=== PATIENT | female | born 1990 | race Two or more races ===

== ENCOUNTER 2020-04-14 14:21 | Emergency (ER) | payer MEDICAID ==
[~2020-04-14] VITALS: Ht 154.9 cm; Wt 76.2 kg
[2020-04-14 14:25] VITALS: BP 105/64
[2020-04-14] MEDS ORDERED: Omnipaque-300 100ml vial INJ PRN (14:45)
[2020-04-14] MEDS ORDERED: Morphine Sulfate 4mg/ml Inj (IV USE ONLY) IVP ONE (14:45)
[2020-04-14 15:11] LABS: APPEARANCE,URINE SLIGHTLY CLOUDY; BILIRUBIN, URINE NEGATIVE (NEGATIVE); COLOR,URINE PALE YELLOW; GLUCOSE, URINE (UA) NEGATIVE (NEGATIVE); KETONES,URINE NEGATIVE (NEGATIVE); LEUKOCYTE ESTERASE ,URINE 1+ (NEGATIVE); NITRITE,URINE NEGATIVE (NEGATIVE); PH,URINE 8 (4.5-8.0); PROTEIN,URINE 1+ (NEGATIVE); UROBILINOGEN,URINE NORMAL MG/DL (0.0-1.0)
[2020-04-14 15:12] LABS: BASOPHILS % (AUTO) 0.9 % (0.0-2.0); EOSINOPHILS % (AUTO) 6.3 % (0.0-3.0); HEMATOCRIT 44.8 % (37.0-47.0); HEMOGLOBIN 14.9 G/DL (12.0-16.0); LYMPHOCYTES % (AUTO) 35.1 % (20.0-45.0); MEAN CORPUSCULAR VOLUME 95 FL (80-99); MONOCYTES % (AUTO) 7.5 % (1.0-10.0); NEUTROPHILS % (AUTO) 50.2 % (45.0-75.0); PLATELET COUNT 164 K/UL (150-450); RED CELL DISTRIBUTION WIDTH 12.6 % (11.6-14.8); WHITE BLOOD COUNT 6.5 K/UL (4.8-10.8)
--- NOTE | 2020-04-14 15:17 | Diagnostic Imaging Report ---
EXAM: US Pelvis Transabdominal and Transvaginal, Complete CLINICAL HISTORY: ABD PAIN TECHNIQUE: Real-time complete transabdominal and transvaginal pelvic ultrasound with image documentation. Transvaginal imaging was used for better evaluation of the endometrium and adnexa. COMPARISON: No relevant prior studies available. FINDINGS: Uterus/cervix: Uterus measures 6.6 x 2.9 x 3.5 cm. Endometrium is thin. Right ovary: Right ovary measures 2.2 x 1.4 x 1.9 cm. No complex lesion or torsion. Left ovary: Left ovary is not visualized. Bladder: Unremarkable as visualized. Wall is normal thickness for degree of distention. IMPRESSION: Right ovary is unremarkable. Left ovary not visualized..
[2020-04-14 15:23] LABS: ANION GAP 9 mmol/L (5-15); BLOOD UREA NITROGEN 15 mg/dL (7-18); CARBON DIOXIDE 27 MMOL/L (21-32); CHLORIDE 109 MMOL/L (98-107); CREATININE 0.7 MG/DL (0.55-1.30); POTASSIUM 3.9 MMOL/L (3.5-5.1); SODIUM 145 MMOL/L (136-145)
[2020-04-14 15:28] LABS: ALANINE AMINOTRANSFERASE 25 U/L (12-78); ALBUMIN 3.9 G/DL (3.4-5.0); ALBUMIN/GLOBULIN RATIO 0.9 (1.0-2.7); ALKALINE PHOSPHATASE 66 U/L (46-116); ASPARTATE AMINO TRANSFERASE 16 U/L (15-37); BILIRUBIN,TOTAL 0.3 MG/DL (0.2-1.0)
--- NOTE | 2020-04-14 16:21 | Diagnostic Imaging Report ---
EXAM: CT Abdomen and Pelvis With Intravenous Contrast CLINICAL HISTORY: ABD PAIN TECHNIQUE: Axial computed tomography images of the abdomen and pelvis with intravenous contrast. CTDI is 7 mGy and DLP is 409.9 mGy-cm. One or more of the following dose reduction techniques were used: automated exposure control, adjustment of the mA and/or kV according to patient size, use of iterative reconstruction technique. COMPARISON: No relevant prior studies available. FINDINGS: Lung bases: Mild consolidative atelectasis in the lung bases. ABDOMEN: Liver: Unremarkable. Gallbladder and bile ducts: No calcified stones. No ductal dilation. Pancreas: Unremarkable. Spleen: Unremarkable. Adrenals: Unremarkable. Kidneys and ureters: Unremarkable. No hydronephrosis. Stomach and bowel: No toby mural thickening. Nonobstructive bowel gas pattern. PELVIS: Appendix: No findings to suggest acute appendicitis. Bladder: Unremarkable. Reproductive: Unremarkable. ABDOMEN and PELVIS: Intraperitoneal space: Unremarkable. Bones/joints: No acute fracture. Soft tissues: Unremarkable. Vasculature: Unremarkable. No abdominal aortic aneurysm. Lymph nodes: No enlarged lymph nodes. IMPRESSION: No acute findings in the abdomen or pelvis.
[2020-04-14] MEDS ORDERED: COLACE100 MG ORAL (16:33)
[2020-04-14 16:52] VITALS: BP 112/72
--- NOTE | 2020-04-14 19:21 | Emergency Room Report ---
History of Present Illness General Chief Complaint: Abdominal Pain Source: Patient Present Illness HPI 29-year-old female presents for evaluation. Complaining of abdominal pain for the last 2 months. Pain is middle abdomen radiating to the right, 7 out of 10. Notes episodes of nausea and vomiting. States she has been seen by the PMD was referred for an MRI but has not been done yet. No other aggravating relieving factors. 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 Patient History Past Medical History: none Past Surgical History: none Pertinent Family History: none Social History: Denies: smoking, alcohol use, drug use Last Menstrual Period: on her period Now: No Immunizations: UTD Reviewed Nursing Documentation: PMH: Agreed; PSxH: Agreed Nursing Documentation-PMH Past Medical History: No Stated History Review of Systems All Other Systems: negative except mentioned in HPI Physical Exam Vital Signs Date Time Temp Pulse Resp B/P (MAP) Pulse Ox O2 Delivery O2 Flow Rate FiO2 04/14/20 14:25 87 18 Room Air 04/14/20 14:25 98.2 105/64 94 Sp02 EP Interpretation: reviewed, normal General Appearance: no apparent distress, alert, GCS 15, non-toxic Head: normocephalic, atraumatic Eyes: bilateral eye normal inspection, bilateral eye PERRL ENT: hearing grossly normal, normal pharynx, no angioedema, normal voice Neck: full range of motion, supple/symm/no masses Respiratory: chest non-tender, lungs clear, normal breath sounds, speaking full sentences Cardiovascular #1: regular rate, rhythm, no edema Cardiovascular #2: 2+ carotid (R), 2+ carotid (L), 2+ radial (R), 2+ radial (L), 2+ dorsalis pedis (R), 2+ dorsalis pedis (L) Gastrointestinal: normal bowel sounds, soft, non-distended, no guarding, no rebound, tenderness Rectal: deferred Genitourinary: normal inspection, no CVA tenderness Musculoskeletal: back normal, normal range of motion, gait/station normal, non- tender Neurologic: alert, motor strength/tone normal, oriented x3, sensory intact, responsive, speech normal Psychiatric: judgement/insight normal, memory normal, mood/affect normal, no suicidal/homicidal ideation Reflexes: 3+ bicep (R), 3+ bicep (L), 3+ tricep (R), 3+ tricep (L), 3+ knee (R), 3+ knee (L) Lymphatic: no adenopathy Medical Decision Making Diagnostic Impression: Primary Impression: Abdominal pain Qualified Codes: R10.31 - Right lower quadrant pain ER Course Hospital Course 29-year-old F presents to ED with lower abdominal pain Differential diagnosis includes-appendicitis, cholecystitis, small bowel obstruction, gastritis, Clinical course Patient placed on stretcher. After initial history and physical I ordered labs, IV fluids, pain medications and US and CT scan Labs - no leukocytosis, electroytes ok, LFTs normal, UA unremarkable CT scan shows no acute pathology Ultrasound shows no ovarian pathology On CT there appears to be significant fecal impaction. I discussed this with the patient explained this could be a very realistic cause of her pain. Will discharge home on stool softeners. I provided copies of her CT and ultrasound report. Safe for discharge and close outpatient follow-up. States she will follow-up with her PMD Upon reassessment, patient states pain has improved. Given improvement in symptoms and lack of acute findings, I believe patient can be safely discharged to home. Patient agrees with plan I feel this is a highly complex case requiring extensive working including EKG/Rhythm strip, Xray/CT/US, Blood/urine lab work, repeat exams while in ED, and administration of strong opiates/narcotics for pain control, admission to hospital or close patient follow up. Diagnosis - abdominal pain Stable and discharged to home. Followup with PMD. Return to ED if symptoms recur or worsen Laboratory Tests Test 04/14/20 14:40 White Blood Count 6.5 K/UL (4.8-10.8) Red Blood Count 4.70 M/UL (4.20-5.40) Hemoglobin 14.9 G/DL (12.0-16.0) Hematocrit 44.8 % (37.0-47.0) Mean Corpuscular Volume 95 FL (80-99) Mean Corpuscular Hemoglobin 31.8 PG (27.0-31.0) H Mean Corpuscular Hemoglobin Concent 33.4 G/DL (32.0-36.0) Red Cell Distribution Width 12.6 % (11.6-14.8) Platelet Count 164 K/UL (150-450) Mean Platelet Volume 8.2 FL (6.5-10.1) Neutrophils (%) (Auto) 50.2 % (45.0-75.0) Lymphocytes (%) (Auto) 35.1 % (20.0-45.0) Monocytes (%) (Auto) 7.5 % (1.0-10.0) Eosinophils (%) (Auto) 6.3 % (0.0-3.0) H Basophils (%) (Auto) 0.9 % (0.0-2.0) Urine Color Pale yellow Urine Appearance Slightly cloudy Urine pH 8 (4.5-8.0) Urine Specific [place] 1.010 (1.005-1.035) Urine Protein 1+ (NEGATIVE) H Urine Glucose (UA) Negative (NEGATIVE) Urine Ketones Negative (NEGATIVE) Urine Blood 5+ (NEGATIVE) H Urine Nitrite Negative (NEGATIVE) Urine Bilirubin Negative (NEGATIVE) Urine Urobilinogen Normal MG/DL (0.0-1.0) Urine Leukocyte Esterase 1+ (NEGATIVE) H Urine RBC Tntc /HPF (0 - 2) H Urine WBC 0-2 /HPF (0 - 2) Urine Squamous Epithelial Cells Few /LPF (NONE/OCC) Urine Bacteria Occasional /HPF (NONE) Urine HCG, Qualitative Negative (NEGATIVE) Sodium Level 145 MMOL/L (136-145) Potassium Level 3.9 MMOL/L (3.5-5.1) Chloride Level 109 MMOL/L (98-107) H Carbon Dioxide Level 27 MMOL/L (21-32) Anion Gap 9 mmol/L (5-15) Blood Urea Nitrogen 15 mg/dL (7-18) Creatinine 0.7 MG/DL (0.55-1.30) Estimat Glomerular Filtration Rate > 60 mL/min (>60) Glucose Level 83 MG/DL (74-106) Calcium Level 9.0 MG/DL (8.5-10.1) Total Bilirubin 0.3 MG/DL (0.2-1.0) Aspartate Amino Transf (AST/SGOT) 16 U/L (15-37) Alanine Aminotransferase (ALT/SGPT) 25 U/L (12-78) Alkaline Phosphatase 66 U/L (46-116) Total Protein 8.1 G/DL (6.4-8.2) Albumin 3.9 G/DL (3.4-5.0) Globulin 4.2 g/dL Albumin/Globulin Ratio 0.9 (1.0-2.7) L Lipase 178 U/L (73-393) CT/MRI/US Diagnostic Results CT/MRI/US Diagnostic Results #1: Imaging Test Ordered: CT A/P Impression Procedure: CT Abdomen Pelvis w/Contrast EXAM: CT Abdomen and Pelvis With Intravenous Contrast CLINICAL HISTORY: ABD PAIN TECHNIQUE: Axial computed tomography images of the abdomen and pelvis with intravenous contrast. CTDI is 7 mGy and DLP is 409.9 mGy-cm. One or more of the following dose reduction techniques were used: automated exposure control, adjustment of the mA and/or kV according to patient size, use of iterative reconstruction technique. COMPARISON: No relevant prior studies available. FINDINGS: Lung bases: Mild consolidative atelectasis in the lung bases. ABDOMEN: Liver: Unremarkable. Gallbladder and bile ducts: No calcified stones. No ductal dilation. Pancreas: Unremarkable. Spleen: Unremarkable. Adrenals: Unremarkable. Kidneys and ureters: Unremarkable. No hydronephrosis. Stomach and bowel: No toby mural thickening. Nonobstructive bowel gas pattern. PELVIS: Appendix: No findings to suggest acute appendicitis. Bladder: Unremarkable. Reproductive: Unremarkable. ABDOMEN and PELVIS: Intraperitoneal space: Unremarkable. Bones/joints: No acute fracture. Soft tissues: Unremarkable. Vasculature: Unremarkable. No abdominal aortic aneurysm. Lymph nodes: No enlarged lymph nodes. IMPRESSION: No acute findings in the abdomen or pelvis. CT/MRI/US Diagnostic Results #2: Imaging Test Ordered: Pelvic US Impression Procedure: US Pelvic w/Transvag EXAM: US Pelvis Transabdominal and Transvaginal, Complete CLINICAL HISTORY: ABD PAIN TECHNIQUE: Real-time complete transabdominal and transvaginal pelvic ultrasound with image documentation. Transvaginal imaging was used for better evaluation of the endometrium and adnexa. COMPARISON: No relevant prior studies available. FINDINGS: Uterus/cervix: Uterus measures 6.6 x 2.9 x 3.5 cm. Endometrium is thin. Right ovary: Right ovary measures 2.2 x 1.4 x 1.9 cm. No complex lesion or torsion. Left ovary: Left ovary is not visualized. Bladder: Unremarkable as visualized. Wall is normal thickness for degree of distention. IMPRESSION: Right ovary is unremarkable. Left ovary not visualized.. Last Vital Signs Date Time Temp Pulse Resp B/P (MAP) Pulse Ox O2 Delivery O2 Flow Rate FiO2 04/14/20 16:52 98.2 69 18 112/72 96 Room Air Status: improved Disposition: HOME, SELF-CARE Condition: Stable Scripts Docusate Sodium* (COLACE*) 100 Mg Capsule 100 MG ORAL THREE TIMES A DAY, #30 CAP Prov: Jg Hutton MD 04/14/20 Referrals: NOT CHOSEN IPA/,REFERRING (PCP) Shawna Bragg [facility]. [facility] Patient Instructions: Constipation, Adult, [id number] Jg Hutton MD Apr 14, 2020 19:21
== END 2020-04-14 16:54 | disposition home or self-care (01) ==
LOC: EMR 15:04
DX: R10.31 Right lower quadrant pain (principal); Z91.040 Latex allergy status
CPT/HCPCS: 36415; 74177; 76830; 76856; 80053; 81003; 81025; 83690; 85025; 96361; 96374; J2270; Q9965; Z7502; 99284

== ENCOUNTER 2020-05-26 16:38 | Emergency (ER) | payer MEDICAID ==
[~2020-05-26] VITALS: Ht 177.8 cm; Wt 74.8 kg
[~2020-05-26 16:38] MED LIST: COLACE100 MG ORAL
[2020-05-26 16:51] VITALS: BP 113/64
--- NOTE | 2020-05-26 16:52 | NUR ---
conmplaints of pain on bilateral toe pain .possible fungal infection or ingrown toe nail waiting for md ochoa
[2020-05-26] MEDS ORDERED: SPORANOX100 MG ORAL (16:55)
--- NOTE | 2020-05-26 16:58 | Emergency Room Report ---
History of Present Illness General Chief Complaint: General Complaint Source: Patient Present Illness HPI 29-year-old otherwise healthy female here with nail fungus. Patient says that for the past several weeks she has noticed thickening and yellowing of her bilateral first toenails. Has not attempted to treat with any other medications. No other complaints. Allergies: Coded Allergies: LATEX, NATURAL RUBBER (Verified Allergy, Unknown, 04/14/20) COVID-19 Screening Contact w/high risk pt: No Experienced COVID-19 symptoms?: No COVID-19 Testing performed MICA WASHER GLUER: No Patient History Last Menstrual Period: 05/15/20 Now: No Nursing Documentation-[facility] Past Medical History: No Stated History Review of Systems All Other Systems: negative except mentioned in HPI Physical Exam Vital Signs Date Time Temp Pulse Resp B/P (MAP) Pulse Ox O2 Delivery O2 Flow Rate FiO2 05/26/20 16:45 97.9 72 18 113/64 (80) 98 Room Air Sp02 EP Interpretation: reviewed, normal General Appearance: no apparent distress, alert, non-toxic Head: normocephalic, atraumatic Eyes: bilateral eye normal inspection, bilateral eye PERRL ENT: hearing grossly normal, normal pharynx, no angioedema, normal voice Respiratory: speaking full sentences Cardiovascular #1: regular rate, rhythm, no edema Rectal: deferred Musculoskeletal: gait/station normal, non-tender, other - Thickening and discoloration of the bilateral first toenails. No surrounding erythema or induration Neurologic: alert, motor strength/tone normal, oriented x3, sensory intact, responsive, speech normal Psychiatric: judgement/insight normal, memory normal, mood/affect normal, no suicidal/homicidal ideation Medical Decision Making Diagnostic Impression: Primary Impression: Onychomycosis ER Course 29-year-old female here with nail fungal infection of her bilateral first toenails. Patient appeared to have onychomycosis on physical examination. She was given a prescription for itraconazole and told to follow-up with primary care. Discharged in stable condition. Last Vital Signs Date Time Temp Pulse Resp B/P (MAP) Pulse Ox O2 Delivery O2 Flow Rate FiO2 05/26/20 16:51 97.9 18 113/64 98 Room Air 05/26/20 16:49 72 Disposition: HOME, SELF-CARE Condition: Stable Scripts Itraconazole (Itraconazole) 100 Mg Capsule 100 MG ORAL DAILY, #20 CAP 0 Refills Prov: Farhad Garcia M.D. 05/26/20 Referrals: [facility] Shawna Fernandez [facility] Additional Instructions: You have onychomycosis. Take the medication once per day for 3 weeks. See your primary care physician if your symptoms worsen. Farhad Garcia M.D. May 26, 2020 16:58
== END 2020-05-26 17:02 | disposition home or self-care (01) ==
LOC: EMR 17:00
DX: B35.1 Tinea unguium (principal); Z91.040 Latex allergy status
CPT/HCPCS: 99282